=== PATIENT | male | born 1955 | race African-American/Black ===

== ENCOUNTER 2022-12-02 17:14 | Emergency (ER) | payer OTHER ==
[2022-12-02 17:21] VITALS: TEMP 98.3
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
[2022-12-02] MEDS ORDERED: hydrALAZINE HCL 20 MG/ML 1 ML VIAL IVP STA ×2 (18:29→20:11)
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
[2022-12-02 19:43] VITALS: RESP 16
[2022-12-02 20:12] LABS: Amphetamine Screen,Urine Not Detected (NotDetected); Barbiturate Screen,Urine Not Detected (NotDetected); Benzodiazepines Screen,Urine Not Detected (NotDetected); Cocaine Screen,Urine Not Detected (NotDetected); Methadone Screen, Urine Detected (NotDetected); Opiate Screen,Urine Not Detected (NotDetected); Oxycodone Screen, Urine Not Detected (NotDetected); Phencyclidine Screen,Urine Not Detected (NotDetected); Tricyclic Antidepressant,Urine Not Detected (NotDetected); Urn Cannabinoid Scrn Not Detected (NotDetected)
[2022-12-02 21:10] VITALS: BP 168/98; PULSE 67
== END 2022-12-02 20:46 | disposition left against medical advice (07) ==
LOC: EC 17:14
DX: Z04.1 Encounter for examination and observation following transport accident (principal); I10 Essential (primary) hypertension; F17.200 Nicotine dependence, unspecified, uncomplicated; Z53.29 Procedure and treatment not carried out because of patient's decision for other reasons; V49.50XA Passenger injured in collision with unspecified motor vehicles in traffic accident, initial encounter
CPT/HCPCS: 99285; 96374; 80306; 72125; 70450; J0360